=== PATIENT | male | born 1960 | race Caucasian/White ===

== ENCOUNTER 2023-04-17 08:34 | Day surgery (SDC) | payer BC ==
[2023-04-17] MEDS ORDERED: Lidocaine 1% PF 5 ML VIAL ONE (08:35)
[2023-04-17] MEDS ORDERED: Sodium Bicarbonate 2.5 MEQ/5 ML SDV ONE (08:36)
[2023-04-17 09:01] VITALS: BP 150/78; TEMP 98.5
== END 2023-04-17 09:40 | disposition home or self-care (01) ==
LOC: CSHULT 08:34
PROVIDERS: ATTEND Otolaryngology Plastic Surgery within the Head & Neck
PROC: 0HB4XZX Excision of Neck Skin, External Approach, Diagnostic (ICD-10-PCS; principal; 2023-04-17)
DX: C44.42 Squamous cell carcinoma of skin of scalp and neck (principal); J32.0 Chronic maxillary sinusitis; J32.2 Chronic ethmoidal sinusitis; E03.9 Hypothyroidism, unspecified; Z90.49 Acquired absence of other specified parts of digestive tract; Z98.890 Other specified postprocedural states; Z88.0 Allergy status to penicillin; Z88.1 Allergy status to other antibiotic agents; Z88.2 Allergy status to sulfonamides; Z79.890 Hormone replacement therapy; Z79.899 Other long term (current) drug therapy
CPT/HCPCS: 10005; 88184; 88307; 88341; 88342

== ENCOUNTER 2024-02-13 15:18 | Outpatient (CLI) | payer BC | END 2024-02-13 15:19 | disposition home or self-care (01) | LOC: CSHCT 15:18 | PROVIDERS: ATTEND Otolaryngology Plastic Surgery within the Head & Neck | DX: Z86.69 Personal history of other diseases of the nervous system and sense organs (principal); Z98.890 Other specified postprocedural states; H74.39 Other acquired abnormalities of ear ossicles; H73.891 Other specified disorders of tympanic membrane, right ear | CPT/HCPCS: 70480 ==

== ENCOUNTER 2024-11-16 10:06 | Day surgery (SDC) | payer BC ==
[2024-11-10 09:37] VITALS: BMI 21.2
[2024-11-16] MEDS ORDERED: Ondansetron PF 4 MG/2 ML Vial ONE (12:16)
[2024-11-16] MEDS ORDERED: PROPOFOL 40 ML ONE (12:20)
[2024-11-16] MEDS ORDERED: Lidocaine 1% PF 5 ML VIAL ONE (12:23)
== END 2024-11-16 13:37 | disposition home or self-care (01) ==
LOC: CSHSDC 10:06
PROVIDERS: ATTEND Surgery
PROC: 0DBL8ZZ Excision of Transverse Colon, Via Natural or Artificial Opening Endoscopic (ICD-10-PCS; principal; 2024-11-16)
DX: Z12.11 Encounter for screening for malignant neoplasm of colon (principal); D12.3 Benign neoplasm of transverse colon; K57.30 Diverticulosis of large intestine without perforation or abscess without bleeding; E03.9 Hypothyroidism, unspecified; Z86.0100 Personal history of colon polyps, unspecified; Z90.49 Acquired absence of other specified parts of digestive tract; Z91.030 Bee allergy status; Z88.0 Allergy status to penicillin; Z88.2 Allergy status to sulfonamides; Z88.1 Allergy status to other antibiotic agents; Z79.890 Hormone replacement therapy
CPT/HCPCS: 88305; J1100; J2405; J2704